=== PATIENT | male | born 1985 | race Caucasian/White ===

== ENCOUNTER → 2017-08-04 09:00 | Outpatient (CLI) | payer OTHER, SELFPAY ==
[2017-08-04 10:00] LABS: Hematocrit 42.5 % (40-54); Hemoglobin 14.7 g/dl (13.0-16.5); Mean Corp Hgb Conc 34.6 g/gl (32-36); Mean Corpuscular Hgb 29.3 pg (27.0-32.0); Mean Corpuscular Volume 84.7 fL (80-94); Mean Platelet Vol. 10.2 fl (6.2-12.0); Platelet Count 223 K/mm3 (150-450); RBC Distribution Width CV 12.9 % (11.6-14.6); RBC Distribution Width SD 39.8 fl (35.1-43.9); Red Blood Count 5.02 M/mm3 (4.6-6.2); White Blood Count 4.7 K/mm3 (4.4-11.0)
[2017-08-04 10:05] LABS: Scan Indicated on CBC? Y/N NO
[2017-08-04 10:33] LABS: ALB/GLOB Ratio 1.1 RATIO (0.9-2.4); AST(SGOT) 16 U/L (15-37); Alanine Aminotransfer ALT/SGPT 22 U/L (16-61); Albumin, Serum 4.1 g/dL (3.2-5.0); Alkaline Phosphatase 33 U/L (45-117); Anion Gap 7 (5-15); BUN 11 mg/dL (7-18); BUN/Creat Ratio 10.8 RATIO (10-20); Calcium,Total 8.8 mg/dL (8.5-10.1); Chloride 103 mmol/L (98-107); Cholesterol 150 mg/dL (200); Creatinine, Serum 1.02 mg/dL (0.70-1.30); EST Glomerular Filtration Rate 89 mL/min (>60); Est Glom Filt Rate - Afr Amer 108 mL/min (>60); Globulin 3.7 g/dL (2.2-4.2); Glucose 89 mg/dL (74-106); High Density Lipoprotein 61 mg/dL; Protein, Total 7.8 g/dL (6.4-8.2); Sodium Level 139 mmol/L (136-145); Triglycerides 35 mg/dL; Very Low Density Lipoprotein 7 mg/dL (5-40)
== END ==
PROVIDERS: Family Provider Family Medicine; PCP Family Medicine; Visit Provider Family Medicine
DX: Z00.00 Encounter for general adult medical examination without abnormal findings (principal)
CPT/HCPCS: 36415; 80053; 80061; 85027

== ENCOUNTER → 2019-08-08 10:45 | Outpatient (CLI) | payer OTHER, SELFPAY ==
[2017-05-07 10:17] VITALS: BMI 27.8
[2019-08-08 12:21] LABS: Hematocrit 42.5 % (40-54); Hemoglobin 13.9 g/dL (13.0-16.5); Mean Corp Hgb Conc 32.7 g/dL (32-36); Mean Corpuscular Hgb 28.3 pg (27.0-32.0); Mean Corpuscular Volume 86.4 fL (80-94); Platelet Count 242 K/mm3 (150-450); RBC Distribution Width CV 12.9 % (11.6-14.6); RBC Distribution Width SD 40.7 fl (35.1-43.9); Red Blood Count 4.92 M/mm3 (4.6-6.2); White Blood Count 5.5 K/mm3 (4.4-11.0)
[2019-08-08 13:01] LABS: Vitamin D,25 Hydroxy 21.6 ng/mL
[2019-08-08 13:10] LABS: ALB/GLOB Ratio 1.1 RATIO (0.9-2.4); AST(SGOT) 16 U/L (15-37); Alanine Aminotransfer ALT/SGPT 23 U/L (16-61); Albumin, Serum 3.9 g/dL (3.2-5.0); Alkaline Phosphatase 33 U/L (45-117); Anion Gap 2 (5-15); BUN 15 mg/dL (7-18); BUN/Creat Ratio 14.3 RATIO (10-20); Calcium,Total 8.9 mg/dL (8.5-10.1); Chloride 107 mmol/L (98-107); Cholesterol 153 mg/dL (200); Creatinine, Serum 1.05 mg/dL (0.70-1.30); EST Glomerular Filtration Rate 85 mL/min (>60); Est Glom Filt Rate - Afr Amer 103 mL/min (>60); Globulin 3.7 g/dL (2.2-4.2); Glucose 85 mg/dL (74-106); High Density Lipoprotein 63 mg/dL; Potassium 4.2 mmol/L (3.5-5.1); Protein, Total 7.6 g/dL (6.4-8.2); Sodium Level 139 mmol/L (136-145); Triglycerides 42 mg/dL; Very Low Density Lipoprotein 8 mg/dL (5-40)
== END ==
PROVIDERS: PCP Family Medicine; Referring Provider Family Medicine; Visit Provider Family Medicine
DX: Z00.00 Encounter for general adult medical examination without abnormal findings (principal)
CPT/HCPCS: 36415; 80053; 80061; 82306; 85027

== ENCOUNTER 2020-06-09 09:30 | Outpatient (RCR) | payer OTHER, SELFPAY ==
[2020-05-12 13:36] VITALS: BMI 27.1
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
--- NOTE | 2020-06-09 09:55 | HP.PTDCSUM ---
It has been my pleasure to treat JULIA MILLER referred by Dr. Fidel Porter DO, with the diagnosis of R ANKLE SPRAIN for a total of 9 visit(s). Discharge Date: 06/09/20 Please see the following information for a summary of their discharge status. Subjective: WENT RUNNING AND IT DIDN'T REALLY HURT BUT HESITANT TO DO TOO MUCH YET. DAY TO DAY STUFF - NO PAIN. A LITTLE BIT OF A SET BACK WITH FOOT TRYING TO PULL FOOT OUT FROM UNDER BOX LAST WEEK. PRIOR TO THAT WOULD HAVE REPORTED IMPROVEMENT GREATER IN THE 90'S. NOW REPORTING 85 TO 90% IMPROVEMENT. PATIENT REPORTS THERAPY HAS BEEN HELPFUL AND PLANS TO CONTINUE WITH HOME EX'S AND RUNNING TOLERATED. PLANS TO CALL DR. PORTER WITH UPDATE INSTRUCTED BY DR. PORTER'S OFFICE. CAN DO STEPS WITHOUT PAIN NOW TOO. HAS BEEN PAINFREE FOR AWHILE NOW EXCEPT BOX INCIDENT AND THAT WAS MILD. r ankle Pain Intensity (Out of 10): 0 % Improvement: 90 Objective/Function: PATIENT WAS SEEN TODAY FOR RE-ASSESSMENT OF PROGRESS TOWARD THE SET PT GOALS AND THE NEED FOR FURTHER PHYSICAL THERAPY VS READINESS FOR DISCHARGE. UPON EXAM TODAY THERE ARE NO DEFICITS SEEN WITH RIGHT FOOT/ANKLE ROM OR STRENGTH. ABLE TO SINGLE LEG HEEL RAISE WITH NO PAIN. LEFS HAS IMPROVED FROM 59 TO 73. Goal 1:: INCREASE FUNCTIONAL STENGTH OF RIGHT LE TO ALLOW FOR RETURN TO PRIOR LEVEL OF FUNCTION Goal Progress: Goal Met Goal 2:: PATIENT WILL BE INDEP WITH A HEP FOR CONTINUED IMPROVEMENT ONCE FORMAL PHYSICAL THERAPY CONCLUDES. Goal Progress: Goal Met Goal 3:: PATIENT WILL BE PAINFREE FOR 3-5 DAYS WITH NORMAL ACTIVITY. Goal Progress: Goal Met Plan: D/C TO INDEP EX. PATIENT AGREEABLE. If there are questions or concerns regarding this patient's physical therapy, please feel free to call me at [phone]. Thank you for the referral of this patient. Sincerely, Lakia aZcarias, PT, Cert MDT
== END 2020-06-09 19:00 | disposition home or self-care (01) ==
LOC: PT 09:30
PROVIDERS: PCP Family Medicine; Referring Provider Orthopaedic Surgery; Visit Provider Orthopaedic Surgery
DX: S93.401D Sprain of unspecified ligament of right ankle, subsequent encounter (principal)
CPT/HCPCS: 97035; 97110; 97161; 97164

== ENCOUNTER 2020-06-24 09:00 | Outpatient (RCR) | payer OTHER, SELFPAY ==
[2020-05-12 13:36] VITALS: BMI 27.1
== END 2020-06-24 23:59 ==
LOC: IMMUN 09:00
PROVIDERS: PCP Family Medicine; Visit Provider Family Medicine
DX: Z23 Encounter for immunization (principal)
CPT/HCPCS: 0011A; 0012A; 91301

== ENCOUNTER → 2020-08-11 09:32 | Outpatient (CLI) | payer OTHER, SELFPAY ==
[2020-05-12 13:36] VITALS: BMI 27.1
[2020-08-11 12:36] LABS: Anion Gap 5 (5-15); BUN 12 mg/dL (7-18); BUN/Creat Ratio 12.3 RATIO (10-20); Calcium,Total 8.6 mg/dL (8.5-10.1); Chloride 104 mmol/L (98-107); Cholesterol 153 mg/dL (200); Creatinine, Serum 0.98 mg/dL (0.70-1.30); EST Glomerular Filtration Rate 92 mL/min (>60); Est Glom Filt Rate - Afr Amer 111 mL/min (>60); Glucose 93 mg/dL (74-106); High Density Lipoprotein 65 mg/dL; Potassium 4.5 mmol/L (3.5-5.1); Sodium Level 139 mmol/L (136-145); Triglycerides 31 mg/dL; Very Low Density Lipoprotein 6 mg/dL (5-40)
[2020-08-11 12:41] LABS: Vitamin D,25 Hydroxy 27.5 ng/mL
== END ==
PROVIDERS: PCP Family Medicine; Referring Provider Family Medicine; Visit Provider Family Medicine
DX: E55.9 Vitamin D deficiency, unspecified (principal); Z13.1 Encounter for screening for diabetes mellitus; Z13.220 Encounter for screening for lipoid disorders
CPT/HCPCS: 36415; 80048; 80061; 82306

== ENCOUNTER 2021-08-24 12:06 | Outpatient (CLI) | payer OTHER, SELFPAY ==
[2021-08-24 15:45] LABS: Hematocrit 43.3 % (40-54); Mean Corp Hgb Conc 32.3 g/dL (32-36); Mean Corpuscular Hgb 28.5 pg (27.0-32.0); Mean Platelet Vol. 10.2 fl (6.2-12.0); Platelet Count 242 K/mm3 (150-450); RBC Distribution Width CV 13.2 % (11.6-14.6); RBC Distribution Width SD 42.5 fl (35.1-43.9); Red Blood Count 4.92 M/mm3 (4.6-6.2); White Blood Count 4.8 K/mm3 (4.4-11.0)
[2021-08-24 16:10] LABS: Vitamin D,25 Hydroxy 33.3 ng/mL
[2021-08-24 16:21] LABS: Anion Gap 4 (5-15); BUN 13 mg/dL (7-18); BUN/Creat Ratio 12.6 RATIO (10-20); Calcium,Total 8.7 mg/dL (8.5-10.1); Chloride 104 mmol/L (98-107); Cholesterol 166 mg/dL (200); Creatinine, Serum 1.03 mg/dL (0.70-1.30); EST Glomerular Filtration Rate 86 mL/min (>60); Est Glom Filt Rate - Afr Amer 104 mL/min (>60); Glucose 95 mg/dL (74-106); High Density Lipoprotein 58 mg/dL; Potassium 4.2 mmol/L (3.5-5.1); Sodium Level 137 mmol/L (136-145); Triglycerides 45 mg/dL; Very Low Density Lipoprotein 9 mg/dL (5-40)
== END 2021-08-24 23:59 | disposition home or self-care (01) ==
LOC: MFPLAB 12:06
PROVIDERS: PCP Family Medicine; Visit Provider Family Medicine
DX: Z00.00 Encounter for general adult medical examination without abnormal findings (principal); Z13.1 Encounter for screening for diabetes mellitus; Z13.220 Encounter for screening for lipoid disorders; E55.9 Vitamin D deficiency, unspecified
CPT/HCPCS: 36415; 80048; 80061; 82306; 85027

== ENCOUNTER 2022-01-29 08:00 | Outpatient (RCR) | payer OTHER, SELFPAY ==
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
--- NOTE | 2022-01-29 09:41 | HP.PTDCSUM_ITS ---
It has been my pleasure to treat JULIA MILLER referred by Dr. Blaine Sanchez MD, with the diagnosis of Lateral Epicondylitis for a total of 8 visit(s). Discharge Date: Please see the following information for a summary of their discharge status. Subjective: Patient reports that he is 80% better- he has no increase in s/s % Improvement: 80 Objective/Function: Posture: good. Gait: no deviation- good arm swing and trunk rotation. ROM: Cervical/UE: WFL in all planes. Palpation: not tender to touch. Strength: Scap: fair plus, Cervical Spine: 4+/5, Shoulder: 5/5 throughout, Elbow: 5/5 without pain Sales Professional: Left: 130 Right: 130. Sensation: WNL Goal 1:: Patient will be I with HEP and progression Goal Progress: Goal Met Goal 2:: Patient will maintain proper posture t/o tx session to demo increased scap s/s Goal Progress: Goal Met Goal 3:: Patient will report no pain for 1 week Goal Progress: Progressing Goal 4:: Patient will report 80% improvement Goal Progress: Goal Met Plan: 01/29/22: Discharge to I HEP. Postural education, scapular retraction, upper trap stretch, levator stretch, tennis elbow stretch. trial bases cervical traction If there are questions or concerns regarding this patient's physical therapy, please feel free to call me at [phone]. Thank you for the referral of this patient. Sincerely, Zandra Bartholomew, DPT Balance/Gait/Functional tests - Balance/Special Test Scores Quick DASH Score: [phone]
== END 2022-01-29 10:04 | disposition home or self-care (01) ==
LOC: PT 08:00
PROVIDERS: PCP Family Medicine; Referring Provider Family Medicine; Visit Provider Family Medicine
DX: M77.11 Lateral epicondylitis, right elbow (principal)
CPT/HCPCS: 97012; 97110; 97162; 97164; 97530